=== PATIENT | female | born 1965 | race Caucasian/White ===

== ENCOUNTER → 2016-07-29 09:36 | Day surgery (SDC) | payer MEDICAID ==
[~2016-07-29] VITALS: Ht 157.5 cm; Wt 62.3 kg
--- NOTE | ~2016-07-29 | OP ---
PATIENT NAME: EILEEN TANNER MEDICAL RECORD: [id number] :63 LOCATION:[facility] ADMISSION DATE: SURGEON: ISMAEL LUCIO DO DATE OF OPERATION: 07/29/2016 PROCEDURE: EGD with biopsies. INDICATIONS FOR PROCEDURE: Epigastric pain, heartburn, nausea. SCOPE: Olympus video gastroscope. MEDICATIONS: Propofol 140 mg IV per anesthesia. ESTIMATED BLOOD LOSS: Less than 2 mL. COMPLICATIONS: None. FINDINGS: Informed consent was given. The patient was made comfortable with the above medication. After reaching an adequate level of sedation by slow IV push, the patient was placed on her left side. The endoscope was then advanced under direct visualization through the mouth to the second portion of the duodenum. The upper, middle, and distal thirds of the esophagus appeared normal. At the GE junction, there was some mild evidence of [place] class A reflux induced esophagitis. The endoscope was advanced beyond this site and the GE junction into the stomach and retroflexed to view the cardia where a small sliding hiatal hernia was present. From a retroflexed view as well as a forward view, you could see evidence of prior intervention consistent with a partial gastrectomy. There was a long, linear suture line that appeared to measure approximately 12 cm along the curvature of the stomach. There was some granulation tissue associated with this healing tissue and there was one site that appeared slightly ulcerated. A single biopsy was taken from this ulcerated site. No further biopsies were taken as there was some bleeding due to the biopsy. The remainder of the stump mucosa appeared normal. The scope was advanced beyond the pylorus into the duodenum where the bulb and second portion of the duodenum appeared normal. The scope was withdrawn from the patient. The patient tolerated the procedure well and there were no complications. IMPRESSION: 1. Reflux esophagitis grade A. 2. Small sliding hiatal hernia. 3. Evidence of a prior gastrectomy with an ulcerated site along that line. Biopsies were taken. PLAN AND RECOMMENDATIONS: 1. Discharge home when recovery parameters are met. 2. Continue current diet. 3. Continue current medications. 4. Add Carafate 1 gram p.o. q.i.d. times 14 days or indefinitely if this improves symptoms. 5. If the Carafate does not improve symptoms, consider an upper GI for further evaluation. 6. Follow up in GI clinic as needed. TRANSINT:[id number] Voice Confirmation ID: [id number] DOCUMENT ID: [id number] OPERATIVE REPORT [id number] EILEEN TANNER NATHAN A DO CC: [id number] DICTATION DATE: 07/29/16 1312 GUM SPRAYER: 07/30/16 0034 [facility] 07/29/16 [facility] [address] [id number]
[~2016-07-29 09:36] MED LIST: ABILIFY10 MG PO; BYSTOLIC2.5 MG PO; FUROSEMIDE40 MG PO; KLOR-CON 1010 MEQ PO; LANOXIN125 MCG PO; LEVOXYL50 MCG PO; LOVENOX INJ100 MG/ML SC; NEURONTIN 300300 MG PO; RESTORIL15 MG PO; TOPAMAX50 MG PO; ULTRAM50 MG PO; VITAMIN D5000 UNIT PO; ZANAFLEX4 MG PO
[2016-07-29 10:19] VITALS: BP 123/74; Ht 157.5 cm; Wt 62.3 kg
[2016-07-29 11:57] LABS: BASOPHILS 0.2 % (0-2); EOSINOPHILS 1.8 % (0-7); HEMATOCRIT 41.2 % (36.0-48.0); IMMATURE GRANULOCYTES 0.2 % (0-5); LYMPHOCYTES 32.5 % (15-50); MCH 28.2 pg (26.0-34.0); MCHC 31.6 g/dL (31.0-37.0); MCV 89.4 fL (80.0-100.0); MONOCYTES 7.9 % (2-11); NEUTROPHILS 57.4 % (40-80); PLATELET COUNT 165 10x3/uL (130-400); RBC 4.61 10x6/uL (4.00-5.40); RDW 15.4 % (11.5-14.5); WBC 4.6 10x3/uL (4.8-10.8)
[2016-07-29 12:11] LABS: CARBON DIOXIDE 23.6 mmol/L (21.0-32.0); CREATININE - SERUM 0.9 mg/dL (0.6-1.3); POTASSIUM - SERUM 3.6 mmol/L (3.5-5.1)
--- NOTE | 2016-07-29 16:59 | NUR ---
1545-Pt escorted out by volunteer and accompanied by his .
--- NOTE | 2016-07-29 17:02 | NUR ---
1610-Pt escorted out by receptionist secretary Oma. global category manager, Debbi, at outpatient entrance to pick her up.
== END | disposition home or self-care (01) ==
LOC: D.OPS 09:36
PROVIDERS: Anesthesiology
DX: K21.0 Gastro-esophageal reflux disease with esophagitis (principal); K44.9 Diaphragmatic hernia without obstruction or gangrene; K29.70 Gastritis, unspecified, without bleeding; Z90.3 Acquired absence of stomach [part of]; Z01.812 Encounter for preprocedural laboratory examination

== ENCOUNTER 2016-08-20 09:47 | Day surgery (SDC) | payer MEDICAID ==
[~2016-08-20] VITALS: Ht 157.5 cm; Wt 58.6 kg
--- NOTE | ~2016-08-20 | OP ---
PATIENT NAME: EILEEN TANNER MEDICAL RECORD: [id number] :63 LOCATION:D.[facility] ADMISSION DATE: SURGEON: ISMAEL LUCIO DO OPERATION DATE: 08/20/16 PROCEDURE: Colonoscopy with biopsies and stool collection. INDICATIONS FOR PROCEDURE: History of a gastrointestinal stomal tumor, diarrhea, abdominal pain, and nausea. SCOPE: Olympus video pediatric colonoscope. MEDICATIONS: Propofol 300 milligrams IV. WITHDRAWAL TIME: 9 minutes. ESTIMATED BLOOD LOSS: Minimal. COMPLICATIONS: None. FINDINGS: Informed consent was given. The patient was made comfortable with the above medication. After reaching an adequate level of sedation by slow IV push, the patient was placed on her left side. A digital rectal examination was performed and was normal. The endoscope was then advanced under direct visualization through the rectum to the cecum with visualization of the appendiceal orifice and ileocecal valve. The endoscope was then slowly withdrawn, and the mucosa was carefully examined. Retroflexion was performed in the rectum. There were no polyps, ulcers, or erosions found on this examination. The appearances were normal on retroflexion in the rectum. The only abnormality on this examination included small telangiectatic spots on the rectum which could very well just be prep related. A differential would include proctitis. Biopsies were taken directly from this site. There were also random biopsies taken throughout the colon to rule out microscopic colitis. Stool was collected during the examination to send off for infectious studies to rule out other etiologies of diarrhea. The endoscope was withdrawn from the patient. The patient tolerated the procedure well, and there were no complications. IMPRESSIONS: Normal colonoscopy other than some telangiectatic erythematous spots in the rectum which is likely prep related. Biopsies taken. PLAN/RECOMMENDATIONS: 1. Discharge home when recovery parameters are met. 2. Continue current medications. 3. Continue current diet. 4. Further recommendations will be given after results are obtained from infectious workup as well as random biopsies to rule out microscopic colitis. It is okay to try some Imodium at this time for the diarrhea. OPERATIVE REPORT [id number] EILEEN TANNERISMAEL DO CC: [id number] DICTATION DATE: 08/20/16 1200 DAIRY FEED WORKER: DM 08/21/16 1116 [facility] 08/20/16 [id number] [place] [address]
[~2016-08-20 09:47] MED LIST changes: +FUROSEMIDE20 MG PO; -FUROSEMIDE40 MG PO
[2016-08-20] MEDS ORDERED: ZEBETA5 MG PO (11:07)
[2016-08-20] MEDS ORDERED: HYDROCODONE-APA1 TAB PO (11:09)
[2016-08-20 11:16] VITALS: BP 134/76; Ht 157.5 cm; Wt 58.6 kg
[2016-08-20 11:32] LABS: BASOPHILS 0.2 % (0-2); EOSINOPHILS 1.2 % (0-7); HEMATOCRIT 42.8 % (36.0-48.0); HEMOGLOBIN 13.6 g/dL (12-16); IMMATURE GRANULOCYTES 0.1 % (0-5); MCH 28.5 pg (26.0-34.0); MCHC 31.8 g/dL (31.0-37.0); MCV 89.5 fL (80.0-100.0); MONOCYTES 6.9 % (2-11); NEUTROPHILS 61.6 % (40-80); PLATELET COUNT 191 10x3/uL (130-400); RBC 4.78 10x6/uL (4.00-5.40); RDW 15.4 % (11.5-14.5); WBC 8.2 10x3/uL (4.8-10.8)
[2016-08-20 11:46] LABS: ANION GAP 17.3 mmol/L (8-16); CALCIUM 9.4 mg/dL (8.5-10.1); CARBON DIOXIDE 22.1 mmol/L (21.0-32.0); POTASSIUM - SERUM 3.4 mmol/L (3.5-5.1)
--- NOTE | 2016-08-20 15:35 | NUR ---
1305- PT SITTING UP WITH HOB ELEVATED. VSS. FAMILY AT BEDSIDE. VOISE SPOKE WITH PT AND FAMILY ABOUT PROCEDURAL FINDINGS 1345- IV D/C'D, PT TOLERATED. CATHETER INTACT. 1400- DISCHARGE INSTRUCTION COMPLETED, PT VERBALIZED UNDERSTANDING. PAPERWORK SIGNED. 1405- PT DISCHARGED VIA WHEELCHAIR WITH FAMILY.
== END 2016-08-20 14:05 | disposition home or self-care (01) ==
LOC: D.OPS 09:47
PROVIDERS: Anesthesiology
DX: R19.7 Diarrhea, unspecified (principal); R10.13 Epigastric pain; R11.0 Nausea; I25.10 Atherosclerotic heart disease of native coronary artery without angina pectoris; I10 Essential (primary) hypertension; K21.9 Gastro-esophageal reflux disease without esophagitis; G47.30 Sleep apnea, unspecified; Z95.5 Presence of coronary angioplasty implant and graft; Z01.812 Encounter for preprocedural laboratory examination

== ENCOUNTER 2016-09-22 13:10 | Emergency (ER) | payer MEDICAID ==
[2016-08-20 11:16] VITALS: BMI 23.6
[~2016-09-22 13:10] MED LIST changes: +HYDROCODONE-APA1 TAB PO; +ZEBETA5 MG PO
== END 2016-09-22 18:47 | disposition home or self-care (01) ==
LOC: D.ER 13:10
DX: R13.10 Dysphagia, unspecified (principal); Z87.19 Personal history of other diseases of the digestive system; I10 Essential (primary) hypertension

== ENCOUNTER 2016-10-01 09:00 | Day surgery (SDC) | payer MEDICAID ==
[~2016-10-01] VITALS: Ht 157.5 cm; Wt 56.8 kg
[~2016-10-01 09:00] MED LIST changes: -LANOXIN125 MCG PO; +LANOXIN250 MCG PO; -LEVOXYL50 MCG PO; +LEVOXYL75 MCG PO; -LOVENOX INJ100 MG/ML SC; +LOVENOX40 MG/0.4 SC
[2016-10-01] MEDS ORDERED: PROTONIX40 MG PO (14:17)
[2016-10-01 14:31] VITALS: BP 140/78; Ht 157.5 cm; Wt 56.8 kg
[2016-10-01 14:35] LABS: HEMATOCRIT 37.9 % (36.0-48.0); MCH 27.8 pg (26.0-34.0); MCHC 31.7 g/dL (31.0-37.0); MCV 87.9 fL (80.0-100.0); MEAN PLATELET VOLUME 11.1 fL (7.4-10.4); RBC 4.31 10x6/uL (4.00-5.40); RDW 15.1 % (11.5-14.5)
[2016-10-01 14:43] LABS: APTT 29.8 SECONDS (22.8-39.4); INR 1.06 (0.85-1.17); PROTIME 13.7 SECONDS (11.6-15.0)
[2016-10-01 14:49] LABS: ANION GAP 14.4 mmol/L (8-16); CALCIUM 8.7 mg/dL (8.5-10.1); CREATININE - SERUM 0.9 mg/dL (0.6-1.3); POTASSIUM - SERUM 3.4 mmol/L (3.5-5.1)
--- NOTE | 2016-10-01 15:05 | NUR ---
BALLOON FOR DILITATION OF ESOPHAGUAS
--- NOTE | 2016-10-01 16:26 | NUR ---
1623 DISCHARGE INSTRUCTIONS COMPLETE. SHE HAS NO QUESTIONS OR CONCNERNS AT THIS TIME. NAUSEA CONTROLLED WITH ZOFRAN. ESCORTED OUT BY DAWIT PASCAL.
--- NOTE | 2016-10-02 08:48 | OP ---
PATIENT NAME: EILEEN TANNER MEDICAL RECORD: [id number] :63 LOCATION:[facility] ADMISSION DATE: SURGEON: ISMAEL LUCIO DO DATE OF OPERATION: 10/01/2016 PROCEDURE: EGD with balloon dilation. INDICATIONS FOR PROCEDURE: Dysphagia. SCOPE: Olympus video gastroscope. MEDICATIONS: Propofol 220 mg IV per anesthesia. ESTIMATED BLOOD LOSS: Minimal. COMPLICATIONS: None. FINDINGS: Informed consent was given. The patient was made comfortable with the above medication. After reaching an adequate level of sedation by slow IV push, the patient was placed on her left side. The endoscope was advanced under direct visualization through the mouth to the second portion of the duodenum. The upper, middle, and lower thirds of the esophagus appeared normal. At the GE junction just proximal, there was a stenosis, which measured approximately 15-16 mm in diameter. The endoscope was advanced beyond this site into the stomach and retroflexed to view the cardia, where a small sliding hiatal hernia was present. In the fundus and body of the stomach, there was evidence of prior intervention, which the patient has had a partial gastrectomy for removal of the tumor. The antrum and prepyloric region was normal. The scope was advanced beyond the pylorus in the duodenum where the bulb and second portion of the duodenum was normal. The scope was then withdrawn back into the stomach and a 16-18 mm dilating CRE balloon was placed through the working channel of the scope. The scope was brought back up into the esophagus and the stenosis was dilated up to 18 mm in diameter successfully. The balloon and scope was then withdrawn from the patient. The patient tolerated the procedure well and there were no complications. IMPRESSION: 1. Esophageal stenosis just proximal to the gastroesophageal junction, dilated with a CRE balloon up to 18 mm in diameter. 2. Small sliding hiatal hernia. 3. Prior intervention in the fundus and body of the stomach. PLAN AND RECOMMENDATIONS: 1. Discharge home when recovery parameters are met. 2. Continue current medications and diet. 3. Referral for manometry/motility to rule out dysmotility of the esophagus as a cause of dysphagia. 4. Repeat EGD as needed once motility study is performed. 5. Consider CT of soft tissues of the neck regarding dysphagia. TRANSINT:[id number] Voice Confirmation ID: [id number] DOCUMENT ID: [id number] OPERATIVE REPORT [id number] EILEEN TANNERISMAEL PEREZ DO at 0848 CC: [id number] DICTATION DATE: 10/01/16 152 MANAGER MARKETING COMMUNICATION: 10/01/161922 [facility] [address] [place] [address]
== END 2016-10-01 23:59 | disposition home or self-care (01) ==
LOC: D.OPS 09:00
PROVIDERS: Anesthesiology
DX: R13.10 Dysphagia, unspecified (principal); I25.10 Atherosclerotic heart disease of native coronary artery without angina pectoris; I10 Essential (primary) hypertension; E03.9 Hypothyroidism, unspecified; K21.9 Gastro-esophageal reflux disease without esophagitis; Z95.5 Presence of coronary angioplasty implant and graft; Z01.812 Encounter for preprocedural laboratory examination; K22.2 Esophageal obstruction

== ENCOUNTER 2017-03-15 18:03 | Emergency (ER) | payer MEDICAID ==
[2016-10-01 14:31] VITALS: BMI 22.9
[~2017-03-15 18:03] MED LIST changes: +PROTONIX40 MG PO
[2017-03-15 19:22] LABS: BASOPHILS 0.2 % (0-2); HEMATOCRIT 36.7 % (36.0-48.0); HEMOGLOBIN 11.5 g/dL (12-16); IMMATURE GRANULOCYTES 0.2 % (0-5); LYMPHOCYTES 23.7 % (15-50); MCH 26.9 pg (26.0-34.0); MCHC 31.3 g/dL (31.0-37.0); MCV 85.9 fL (80.0-100.0); MEAN PLATELET VOLUME 11.2 fL (7.4-10.4); MONOCYTES 9.6 % (2-11); NEUTROPHILS 63.3 % (40-80); PLATELET COUNT 143 10x3/uL (130-400); RBC 4.27 10x6/uL (4.00-5.40); RDW 17.1 % (11.5-14.5); WBC 4.3 10x3/uL (4.8-10.8)
[2017-03-15 20:04] LABS: ALBUMIN 3.9 g/dL (3.4-5.0); ANION GAP 17.4 mmol/L (8-16); BILIRUBIN - TOTAL 0.27 mg/dL (0.2-1.3); CALCIUM 8.5 mg/dL (8.5-10.1); CARBON DIOXIDE 22.1 mmol/L (21.0-32.0); POTASSIUM - SERUM 3.5 mmol/L (3.5-5.1); PROTEIN - SERUM 7.4 g/dL (6.4-8.2)
== END 2017-03-15 22:35 | disposition home or self-care (01) ==
LOC: D.ER 18:03
PROVIDERS: Family Medicine
DX: R19.7 Diarrhea, unspecified (principal); Z95.0 Presence of cardiac pacemaker; I10 Essential (primary) hypertension

== ENCOUNTER 2017-04-26 09:48 | Day surgery (SDC) | payer MEDICAID ==
[~2017-04-26] VITALS: Ht 157.5 cm; Wt 58.2 kg
--- NOTE | ~2017-04-26 | OP ---
PATIENT NAME: EILEEN TANNER MEDICAL RECORD: [id number] :63 LOCATION:D.[facility] ADMISSION DATE: SURGEON: ISMAEL LUCIO DO DATE OF OPERATION: 04/26/2017 PROCEDURE: Colonoscopy with polypectomy and biopsies as well as stool collection. INDICATIONS FOR PROCEDURE: Diarrhea. SCOPE: Melodigram video pediatric colonoscope. MEDICATIONS: Propofol 300 mg IV per anesthesia. WITHDRAWAL TIME: 9 minutes. ESTIMATED BLOOD LOSS: Minimal. COMPLICATIONS: None. FINDINGS: Informed consent was given. The patient was made comfortable with the above medication. After reaching an adequate level of sedation by slow IV push, the patient was placed on her left side. A digital rectal examination was performed and revealed some external skin tags from previous hemorrhoids, but was otherwise normal. The endoscope was then advanced through the rectum under direct visualization to the cecum with visualization of the appendiceal orifice and ileocecal valve. There was 1 polyp visualized on today's examination. It was a benign appearing sessile polyp located in the descending colon. It measured approximately 3-4 mm in diameter. It was removed using a hot snare in 1 piece and completely retrieved. There were no other polyps on today's exam. There were no other findings to explain the patient's diarrhea. Stool was collected to submit for culture, fecal white blood cells, and to rule out C. difficile. Random biopsies were taken to rule out microscopic colitis. Retroflexion was performed in the rectum with a normal appearing rectal wall. The endoscope was withdrawn from the patient. The patient tolerated the procedure well and there were no complications. IMPRESSION: 1. Single polyp located in the descending colon, status post hot snare removal. 2. Otherwise, normal colonoscopy to cecum. Biopsies taken and stool collected to rule out infectious regions for loose stools. PLAN AND RECOMMENDATIONS: 1. Discharge home when recovery parameters are met. 2. Continue current diet. 3. Continue current medications. 4. Okay to use Imodium as needed to help with loose stools and diarrhea. 5. Recommend continuing cholestyramine as prescribed. 6. We will submit a prior authorization from the clinic for Viberzi 100 mg b.i.d. to see if this can help with the diarrhea, which seems to be irritable bowel syndrome type diarrhea. 7. Follow up biopsies and stool studies and treat as indicated. 8. Recall colonoscopy in 3 years. TRANSINT:[id number] Voice Confirmation ID: [id number] DOCUMENT ID: [id number] OPERATIVE REPORT [id number] EILEEN TANNER NATHAN A DO at 1119 CC: [id number] DICTATION DATE: 04/26/17 113 CLOTH MERCERIZER BACK TENDER: 04/26/17 1142 [facility] 04/26/17 [id number] [place] [id number]
[2017-04-26 10:28] LABS: HEMATOCRIT 37.2 % (36.0-48.0); HEMOGLOBIN 11.8 g/dL (12-16); MCH 26.5 pg (26.0-34.0); MCHC 31.7 g/dL (31.0-37.0); MCV 83.4 fL (80.0-100.0); MEAN PLATELET VOLUME 11.2 fL (7.4-10.4); RBC 4.46 10x6/uL (4.00-5.40); RDW 16.4 % (11.5-14.5); WBC 6.8 10x3/uL (4.8-10.8)
[2017-04-26 10:34] VITALS: BP 146/81; Ht 157.5 cm; Wt 58.2 kg
== END 2017-04-26 12:15 | disposition home or self-care (01) ==
LOC: D.OPS 09:48
PROVIDERS: Anesthesiology
DX: K63.5 Polyp of colon (principal); R19.7 Diarrhea, unspecified; I25.10 Atherosclerotic heart disease of native coronary artery without angina pectoris; I10 Essential (primary) hypertension; E03.9 Hypothyroidism, unspecified; G47.30 Sleep apnea, unspecified; K21.9 Gastro-esophageal reflux disease without esophagitis; Z01.812 Encounter for preprocedural laboratory examination

== ENCOUNTER → 2017-12-06 08:43 | Outpatient (CLI) | payer MEDICAID ==
[~2017-12-06 08:43] MED LIST changes: +COREG CR10 MG PO
== END | disposition home or self-care (01) ==
LOC: D.RAD 08:30
DX: R12 Heartburn (principal); R11.2 Nausea with vomiting, unspecified; R13.10 Dysphagia, unspecified; R10.13 Epigastric pain

== ENCOUNTER → 2017-12-09 08:42 | Outpatient (CLI) | payer MEDICAID | END | disposition home or self-care (01) | LOC: D.OPS 08:42 | DX: R12 Heartburn (principal); R11.2 Nausea with vomiting, unspecified; R13.10 Dysphagia, unspecified; R10.13 Epigastric pain; Z01.812 Encounter for preprocedural laboratory examination ==

== ENCOUNTER 2017-12-22 05:12 | Day surgery (SDC) | payer MEDICAID ==
[~2017-12-22] VITALS: Ht 157.5 cm; Wt 57.3 kg
--- NOTE | ~2017-12-22 | OP ---
PATIENT NAME: EILEEN TANNER MEDICAL RECORD: [id number] :63 LOCATION:[facility] ADMISSION DATE: SURGEON: ISMAEL LUCIO DO DATE OF OPERATION: 12/22/2017 PROCEDURE: EGD with biopsies and balloon dilation. INDICATIONS FOR PROCEDURE: Esophageal dysphagia. Of note, the patient has had past upper endoscopies showing esophageal strictures and she recently underwent an esophageal manometry study, which showed high esophageal pressures in the cfd-pp-[id number] esophagus consistent with a nutcracker esophagus. SCOPE: Olympus video gastroscope. MEDICATIONS: Propofol 200 mg IV per anesthesia. ESTIMATED BLOOD LOSS: Minimal. COMPLICATIONS: None. FINDINGS: Informed consent was given. The patient was made comfortable with the above medication. After reaching an adequate level of sedation by slow IV push, the patient was placed on her left side. The endoscope was advanced under direct visualization through the mouth to the third portion of the duodenum. The upper, middle, and lower thirds of the esophagus appeared normal. There did seem to be a sense of traction on the endoscope consistent with a hypercontractile esophagus. Due to the sense of stenosis, a 18-20 mm dilating balloon was placed through the endoscope and the entire esophagus was dilated to 20 mm. No tears were noted in the esophagus. It is doubtful that this makes a difference, but in light of her dysphagia we are looking for some symptom relief. At the GE junction, there was some mild reflux changes consistent with LA class A reflux-induced esophagitis. The endoscope was advanced beyond the GE junction into the stomach and retroflexed to view the cardia, which appeared normal. The fundus and proximal body appeared normal as well. In the distal body of the stomach as well as the antrum and prepyloric region, there was some streaky erythema and granularity consistent with possible gastritis. Random biopsies were taken to submit for histopathology and to rule out the presence of H. pylori. The endoscope was advanced beyond the pylorus into the duodenum. The entire exam and duodenum down to the third portion appeared normal. The endoscope was withdrawn from the patient. The patient tolerated the procedure well and there were no complications. IMPRESSION: 1. Esophageal stenosis/nutcracker esophagus. Balloon dilations up to 20 mm were attempted throughout the entire esophagus to see if there is any symptom relief. 2. [place] class A reflux-induced esophagitis. 3. Gastritis. Biopsies pending. PLAN AND RECOMMENDATIONS: 1. Discharge home when recovery parameters are met. 2. GERD diet and reflux precautions. 3. Continue current medications. 4. A prescription will be given for Protonix 40 mg daily times 60 days. 5. We will discuss anticholinergic medications to see if this can improve OPERATIVE REPORT [id number] EILEEN TANNER symptoms of the nutcracker esophagus. Currently, her medication list shows that she is taking dicyclomine 20 mg twice daily. If this is the case, this be continued. Otherwise, we will provide a prescription for Levsin 0.125 mg every 4 to 6 hours as needed. 6. [facility] been [facility] to see if anything further can be offered regarding the nutcracker esophagus. TRANSINT:[id number] Voice Confirmation ID: [id number] DOCUMENT ID: [id number] ISMAEL LUCIO DO at 1403 CC: [id number] DICTATION DATE: 12/22/17 08 INTERNAL AUDITOR: 12/22/17 1117 [facility] 12/22/17 [id number] [place] [address]
[~2017-12-22 05:12] MED LIST changes: -COREG CR10 MG PO
[2017-12-22 05:40] LABS: HEMATOCRIT 39.6 % (36.0-48.0); HEMOGLOBIN 12.6 g/dL (12-16); MCHC 31.8 g/dL (31.0-37.0); MEAN PLATELET VOLUME 11.5 fL (7.4-10.4); RBC 4.5 10x6/uL (4.00-5.40); RDW 15.5 % (11.5-14.5); WBC 8.2 10x3/uL (4.8-10.8)
[2017-12-22 06:12] LABS: ALBUMIN 4.1 g/dL (3.4-5.0); ANION GAP 12.9 mmol/L (8-16); BILIRUBIN - TOTAL 0.43 mg/dL (0.2-1.3); CALCIUM 9.1 mg/dL (8.5-10.1); CREATININE - SERUM 1.1 mg/dL (0.6-1.3); POTASSIUM - SERUM 3.9 mmol/L (3.5-5.1)
[2017-12-22] MEDS ORDERED: COREG CR10 MG PO (06:56)
[2017-12-22 07:03] VITALS: BP 131/74; Ht 157.5 cm; Wt 57.3 kg
== END 2017-12-22 09:20 | disposition home or self-care (01) ==
LOC: D.OPS 05:12
PROVIDERS: Anesthesiology
DX: K22.4 Dyskinesia of esophagus (principal); K21.0 Gastro-esophageal reflux disease with esophagitis; K29.50 Unspecified chronic gastritis without bleeding; Z01.812 Encounter for preprocedural laboratory examination

== ENCOUNTER 2019-07-18 06:49 | Day surgery (SDC) | payer MEDICAID ==
[~2019-07-18] VITALS: Ht 157.5 cm; Wt 56.7 kg
[~2019-07-18 06:49] MED LIST changes: +COREG CR10 MG PO
[2019-07-18 07:11] LABS: HEMATOCRIT 38.3 % (36.0-48.0); HEMOGLOBIN 11.5 g/dL (12-16); MCH 26.3 pg (26.0-34.0); MCV 87.4 fL (80.0-100.0); MEAN PLATELET VOLUME 11.5 fL (7.4-10.4); RBC 4.38 10x6/uL (4.00-5.40); RDW 17.2 % (11.5-14.5); WBC 6.1 10x3/uL (4.8-10.8)
--- NOTE | 2019-07-18 07:40 | NUR ---
PAGED DR. SCRUGGS REGARDING NO H&P FOR PT. WAITING FOR CALL BACK.
[2019-07-18] MEDS ORDERED: PEPCID AC20 MG PO (07:46)
[2019-07-18] MEDS ORDERED: MOBIC7.5 MG PO (07:46)
[2019-07-18] MEDS ORDERED: NITROSTAT0.4 MG SL (07:47)
[2019-07-18] MEDS ORDERED: PROTONIX40 MG PO (07:47)
[2019-07-18] MEDS ORDERED: PRAVACHOL40 MG PO (07:48)
[2019-07-18] MEDS ORDERED: PHENERGAN25 M1 PO (07:48)
[2019-07-18] MEDS ORDERED: REXULTI1 MG PO (07:49)
[2019-07-18] MEDS ORDERED: ZOLOFT100 MG PO (07:49)
[2019-07-18] MEDS ORDERED: METAMUCIL SUGAR1 PKT PO (07:49)
[2019-07-18] MEDS ORDERED: ZANAFLEX4 MG PO (07:50)
[2019-07-18] MEDS ORDERED: TOPAMAX50 MG PO (07:50)
[2019-07-18 07:56] VITALS: BP 139/73; Ht 157.5 cm; Wt 56.7 kg
[2019-07-18] MEDS ORDERED: HYDROCODON-ACE1 EA10 PO (10:09)
--- NOTE | 2019-07-18 10:12 | NUR ---
CALLED TECHNOLOGY PROJECT MANAGER TO INFORM HER ABOUT POSITIVE SUICIDE RISK SCREEN. PT IS IN PROCEDURE. BEHAVIORAL HEALTH NURSE WILL EVALUATE PT POST-OP.
--- NOTE | 2019-07-18 10:57 | NUR ---
PT STATED THAT SHE WAS COMFORTABLE, PLAN MADE TO D/C, PT CHANGED HER MIND AT THE LAST MINUTE, REQUESTED FURTHER PAIN RELIEF.
--- NOTE | 2019-07-18 11:33 | NUR ---
BEHAVIORAL NURSE WAS CALLED TO INFORM THAT PT HAS ARRIVED BACK TO OPS UNIT FROM HER PROCEDURE. PT IS READY TO BE EVALUATED BY BEHAVIORAL HEALTH NURSE.
--- NOTE | 2019-07-18 12:22 | NUR ---
DR. LEYVA NOTIFIED AND REVIEWED PT'S BEHAVIOR AND ASSESSMENT RESULTS. PT IS A LOW RISK PER DR. LEYVA. DR. LEYVA STATED TO GIVE RESOURCES TO PT AT TIME OF DISCHARGE. NO FURTHER ORDERS AT THIS TIME. RESOURCES REVIEWED WITH PT AND SHE VERBLIZIED UNDERSTANDING.
--- NOTE | 2019-07-18 12:25 | NUR ---
PT DC INSTRUCTIONS REVIEWED AT THIS TIME, PT VERBALIZES UNDERSTANDING PT IV REMOVED AT THIS TIME, INTACT, NO REDNESS OR SWELLING NOTED AT SITE.
--- NOTE | 2019-07-18 12:31 | NUR ---
PT LEAVING OPS AT THIS TIME VIA WC, NAD NOTED.
--- NOTE | 2019-07-20 16:54 | OP ---
PATIENT NAME: EILEEN TANNER MEDICAL RECORD: [id number] :63 LOCATION:D.[facility] ADMISSION DATE: SURGEON: ALTON SCRUGGS MD DATE OF OPERATION: 07/18/2019 PREOPERATIVE DIAGNOSES: 1. Poor venous access. 2. Coronary artery disease. 3. Hypertension. 4. Protein C deficiency. POSTOPERATIVE DIAGNOSES: 1. Poor venous access. 2. Coronary artery disease. 3. Hypertension. 4. Protein C deficiency. PROCEDURE: 1. Right subclavian vein PowerPort placement. 2. Fluoroscopic interpretation. SURGEON: Alton Scruggs MD REPORT OF PROCEDURE: The patient's right chest was prepped and draped in sterile fashion. A needle was used to cannulate the right subclavian vein. The guidewire was advanced with ease. Fluoro was used to note that the wire was in good position in the venous system. A skin incision was made on the right superolateral chest and a subcutaneous pouch was made over the pectoral fascia. The catheter was tunneled between this pouch and the wire exit site. The port was sutured to the pectoral fascia with interrupted 4-0 Prolenes times 2. The catheter was cut with a beveled tip at 19 cm. The dilator trocar device placed over the wire and the wire and dilator were removed. The catheter tip was advanced through the trocar and the trocar was then removed. The catheter was noted to be resting in good position at the right atrial superior vena caval junction. The catheter aspirated nonpulsatile dark blood and flushed easily with heparinized saline. The subcutaneous tissues were reapproximated with interrupted 3-0 Vicryl and skin was closed with running subcutaneous 5-0 Monocryl. COMPLICATIONS: None. CONDITION: Stable. ANESTHESIA: General endotracheal. BLOOD LOSS: Minimal. TRANSINT:[id number] Voice Confirmation ID: [id number] DOCUMENT ID: [id number] OPERATIVE REPORT [id number] FLORESEILEEN ALAN ALTON SCRUGGS MD at 1653 CC: TOO HERNANDES APRN [id number] DICTATION DATE: 07/18/19 1012 PUBLIC FINANCE SPECIALIST: 07/18/19 2149 [facility] 07/18/19 [place] [id number]
== END 2019-07-18 12:31 | disposition home or self-care (01) ==
LOC: D.OPS 06:49
PROVIDERS: Anesthesiology; ATTEND Surgery
DX: I25.10 Atherosclerotic heart disease of native coronary artery without angina pectoris (principal); I10 Essential (primary) hypertension; D68.59 Other primary thrombophilia

== ENCOUNTER 2019-09-10 13:36 | Emergency (ER) | payer MEDICAID ==
[~2019-09-10] VITALS: Ht 157.5 cm; Wt 56.4 kg
[~2019-09-10 13:36] MED LIST changes: +HYDROCODON-ACE1 EA10 PO; +METAMUCIL SUGAR1 PKT PO; +MOBIC7.5 MG PO; +NITROSTAT0.4 MG SL; +PEPCID AC20 MG PO; +PHENERGAN25 M1 PO; +PRAVACHOL40 MG PO; +REXULTI1 MG PO; +ZOLOFT100 MG PO
[2019-09-10 13:44] VITALS: Ht 157.5 cm; Wt 56.4 kg
[2019-09-10 16:12] LABS: BASOPHILS 0.3 % (0-2); HEMATOCRIT 37.6 % (36.0-48.0); HEMOGLOBIN 11.5 g/dL (12-16); IMMATURE GRANULOCYTES 0.3 % (0-5); LYMPHOCYTES 30.7 % (15-50); MCH 25.8 pg (26.0-34.0); MCHC 30.6 g/dL (31.0-37.0); MCV 84.5 fL (80.0-100.0); MEAN PLATELET VOLUME 11.1 fL (7.4-10.4); MONOCYTES 6.4 % (2-11); NEUTROPHILS 60.3 % (40-80); RBC 4.45 10x6/uL (4.00-5.40); RDW 16.3 % (11.5-14.5); WBC 6.6 10x3/uL (4.8-10.8)
[2019-09-10 16:13] LABS: PLATELET COUNT 152 10x3/uL (130-400)
[2019-09-10 16:25] LABS: CALCIUM 8.9 mg/dL (8.5-10.1); CARBON DIOXIDE 24.8 mmol/L (21.0-32.0); POTASSIUM - SERUM 3.8 mmol/L (3.5-5.1)
[2019-09-10 16:30] LABS: ALBUMIN 4.3 g/dL (3.4-5.0); BILIRUBIN - TOTAL 0.37 mg/dL (0.2-1.3); PROTEIN - SERUM 7.8 g/dL (6.4-8.2)
[2019-09-10 16:51] LABS: AMYLASE - SERUM 58 U/L (25-115); LIPASE 89 U/L (73-393)
[2019-09-10 18:01] LABS: BILIRUBIN NEGATIVE (NEGATIVE); GLUCOSE NEGATIVE (NEGATIVE); KETONE NEGATIVE (NEGATIVE); NITRITE NEGATIVE (NEGATIVE); UROBILINOGEN NORMAL (NORMAL)
[2019-09-10 18:05] LABS: EPITHELIAL CELLS 0-5 /hpf (0-5); RED CELLS - URINE NONE SEEN /hpf (0-5)
[2019-09-10 18:13] LABS: AMORPHOUS SEDIMENT >1+ /lpf (NONE SEEN); BACTERIA MODERATE /hpf (NEGATIVE)
[2019-09-10] MEDS ORDERED: MACROBID100 MG PO (19:11)
[2019-09-10 20:02] VITALS: BP 116/78
== END 2019-09-11 01:41 | disposition home or self-care (01) ==
LOC: D.ER 13:36
PROVIDERS: Emergency Medicine
DX: N39.0 Urinary tract infection, site not specified (principal); K59.00 Constipation, unspecified; R11.2 Nausea with vomiting, unspecified; R19.7 Diarrhea, unspecified; K76.9 Liver disease, unspecified; E07.9 Disorder of thyroid, unspecified; I10 Essential (primary) hypertension; G62.9 Polyneuropathy, unspecified

== ENCOUNTER 2020-04-16 21:01 | Observation (INO) | payer MEDICAID ==
[~2020-04-16] VITALS: Ht 157.5 cm; Wt 52.2 kg
[~2020-04-16 21:01] MED LIST changes: +MACROBID100 MG PO
[2020-04-16] MEDS ORDERED: LEVSIN/ANASP0.125 MG PO (21:17)
[2020-04-16] MEDS ORDERED: BUSPIRONE HCL30 MG PO (21:18)
[2020-04-16] MEDS ORDERED: OMEPRAZOLE40 MG PO (21:19)
[2020-04-16] MEDS ORDERED: HYDROCODONE-AC1 EAC2 (21:20)
[2020-04-16] MEDS ORDERED: TRAZODONE HCL100 MG PO (21:21)
[2020-04-16] MEDS ORDERED: VERAPAMIL HCL40 MG PO (21:22)
[2020-04-16 22:02] LABS: CALC OSMOLALITY 281 mosm/kg (275-300); CALCIUM 9.1 mg/dL (8.5-10.1); CARBON DIOXIDE 26.8 mmol/L (21.0-32.0); CHLORIDE - SERUM 102 mmol/L (98-107); GLUCOSE 107 mg/dL (74-106); POTASSIUM - SERUM 3.5 mmol/L (3.5-5.1); SODIUM 141 mmol/L (136-145); UREA NITROGEN 16 mg/dL (7-18); eGFR NON AFRICAN AMERICAN 61 mL/min (90-120)
[2020-04-16 22:04] LABS: APTT 27.9 SECONDS (22.8-39.4); INR 1.09 (0.85-1.17)
[2020-04-16 22:19] LABS: BASOPHILS 0.4 % (0-2); EOSINOPHILS 3.2 % (0-7); HEMATOCRIT 39.7 % (36.0-48.0); HEMOGLOBIN 12.9 g/dL (12-16); IMMATURE GRANULOCYTES 0.2 % (0-5); LYMPHOCYTE ABS# 2.21 10x3/uL (1.18-3.74); LYMPHOCYTES 38.9 % (15-50); MCH 30.4 pg (26.0-34.0); MCHC 32.5 g/dL (31.0-37.0); MCV 93.4 fL (80.0-100.0); MEAN PLATELET VOLUME 11.1 fL (7.4-10.4); MONOCYTES 7.7 % (2-11); NEUTROPHIL ABS# 2.82 10x3/uL (1.56-6.13); NEUTROPHILS 49.6 % (40-80); PLATELET COUNT 130 10x3/uL (130-400); RBC 4.25 10x6/uL (4.00-5.40); RDW 17.8 % (11.5-14.5); WBC 5.7 10x3/uL (4.8-10.8)
[2020-04-16 22:37] LABS: ALBUMIN 4.4 g/dL (3.4-5.0); ALKALINE PHOSPHATASE 64 U/L (30-120); ALT (SGPT) 24 U/L (10-68); BILIRUBIN - TOTAL 0.17 mg/dL (0.2-1.3); LIPASE 114 U/L (73-393); MAGNESIUM - SERUM 2.1 mg/dL (1.8-2.4); PROTEIN - SERUM 7.6 g/dL (6.4-8.2); THYROID STIMULATING HORMONE 1.37 uIU/mL (0.36-3.74)
[2020-04-16 22:38] LABS: TROPONIN-I < 0.017 ng/mL (0.000-0.060)
--- NOTE | 2020-04-16 22:47 | NUR ---
REPORT GIVEN TO RN WITH VERBAL ACKNOWLEGEMENT
[2020-04-17 04:00] VITALS: BP 115/67
[2020-04-17 04:49] VITALS: BP 107/63; BMI 21.0
[2020-04-17 09:28] VITALS: BP 131/77
[2020-04-17 12:31] VITALS: BP 125/65
[2020-04-17 13:34] VITALS: Ht 157.5 cm; Wt 52.2 kg
[2020-04-17 16:56] VITALS: BP 143/73
[2020-04-17 20:00] VITALS: BP 132/71
[2020-04-18] VITALS: BP 131/73
[2020-04-18 04:00] VITALS: BP 130/77
[2020-04-18 07:51] VITALS: BP 120/67
[2020-04-18 09:04] LABS: BASOPHILS 0.3 % (0-2); EOSINOPHILS 3.2 % (0-7); IMMATURE GRANULOCYTES 0.3 % (0-5); LYMPHOCYTE ABS# 1.73 10x3/uL (1.18-3.74); LYMPHOCYTES 45.6 % (15-50); MCH 29.6 pg (26.0-34.0); MCHC 32.4 g/dL (31.0-37.0); MCV 91.6 fL (80.0-100.0); MEAN PLATELET VOLUME 10.3 fL (7.4-10.4); MONOCYTES 7.9 % (2-11); NEUTROPHIL ABS# 1.62 10x3/uL (1.56-6.13); NEUTROPHILS 42.7 % (40-80); RBC 3.71 10x6/uL (4.00-5.40); RDW 17.1 % (11.5-14.5)
[2020-04-18 09:06] LABS: PLATELET COUNT 96 10x3/uL (130-400); WBC 3.8 10x3/uL (4.8-10.8)
[2020-04-18 09:20] LABS: ALKALINE PHOSPHATASE 49 U/L (30-120); ALT (SGPT) 18 U/L (10-68); BILIRUBIN - TOTAL 0.16 mg/dL (0.2-1.3); CALCIUM 8.4 mg/dL (8.5-10.1); CARBON DIOXIDE 24.1 mmol/L (21.0-32.0); CHLORIDE - SERUM 113 mmol/L (98-107); GLUCOSE 87 mg/dL (74-106); POTASSIUM - SERUM 3.2 mmol/L (3.5-5.1); SODIUM 143 mmol/L (136-145)
[2020-04-18 09:22] LABS: ALBUMIN 3.1 g/dL (3.4-5.0); CALC OSMOLALITY 282 mosm/kg (275-300); CREATININE - SERUM 0.7 mg/dL (0.6-1.3); PROTEIN - SERUM 5.5 g/dL (6.4-8.2); UREA NITROGEN 9 mg/dL (7-18); eGFR NON AFRICAN AMERICAN > 90 mL/min (90-120)
[2020-04-18] MEDS ORDERED: CARAFATE1 G PO (10:45)
[2020-04-18] MEDS ORDERED: PROTONIX40 MG PO (10:45)
[2020-04-18 11:05] VITALS: BP 114/72
[2020-04-18 11:28] LABS: PLATELET ESTIMATE DECREASED
[2020-04-18 11:29] LABS: ROULEAUX OCC
--- NOTE | 2020-04-18 13:00 | NUR ---
NO DYSPHYSIA NOTED. IV DISCONTINUED AND VERBALIZED UNDERSTANDING OF DISCHARGE INSTUCTIONS. STABLE AT TIME OF DISCHARGE.
== END 2020-04-18 13:01 | disposition home or self-care (01) ==
LOC: D.ER 21:01 → D.MS 22:01 → OBSVTIME 22:01 → D.MS 04-18 13:01
PROVIDERS: Family Medicine; ADMIT Legal Medicine; ATTEND Legal Medicine
DX: R13.10 Dysphagia, unspecified (principal); I25.10 Atherosclerotic heart disease of native coronary artery without angina pectoris; D50.9 Iron deficiency anemia, unspecified; K22.2 Esophageal obstruction; K29.70 Gastritis, unspecified, without bleeding